=== PATIENT | male | born 1955 | race Two or more races ===

== ENCOUNTER 2019-03-24 14:01 | Emergency (ER) | payer SELFPAY ==
[~2019-03-24] VITALS: Ht 157.5 cm; Wt 75.7 kg
[~2019-03-24 14:01] MED LIST: COZAAR50 MG PO; ECO81 PO; IBUPROFEN400 MG PO; LIPI10 PO; METFORMIN ER500 M1 PO
[2019-03-24 14:06] VITALS: Ht 157.5 cm; Wt 75.7 kg
[2019-03-24 14:58] LABS: BASOPHIL % 0.5 % (0-2); PLATELET COUNT 212 x10^3mcL (130-400); RED CELL DISTRIBUTION WIDTH 14.3 % (11.5-14.5)
[2019-03-24 15:07] LABS: CALCIUM 8.8 mg/dL (8.5-10.1); CARBON DIOXIDE 21.9 mmol/L (21-32); CREATININE SERUM 1.6 mg/dL (0.7-1.3); POTASSIUM SERUM 4.2 mmol/L (3.5-5.1)
[2019-03-24 15:11] LABS: ALBUMIN 3.8 g/dL (3.4-5.0); BILIRUBIN TOTAL 0.9 mg/dL (0.20-1.00); TOTAL PROTEIN, SERUM 7.8 g/dL (6.4-8.2)
[2019-03-24 17:10] VITALS: BP 136/70
[2019-03-24 17:23] LABS: UA SPECIFIC GRAVITY 1.025 (1.005-1.035); microscopic required? YES; urine erythrocyte 3+ (NEGATIVE)
== END 2019-03-24 17:10 | disposition home or self-care (01) ==
LOC: ED 14:01
PROVIDERS: Specialist
DX: D72.829 Elevated white blood cell count, unspecified (principal); R31.29 Other microscopic hematuria; R10.84 Generalized abdominal pain; R11.0 Nausea; I10 Essential (primary) hypertension; E11.9 Type 2 diabetes mellitus without complications; E78.00 Pure hypercholesterolemia, unspecified; Z91.09 Other allergy status, other than to drugs and biological substances
CPT/HCPCS: 82962; J1885; J2405; J7030